=== PATIENT | female | born 1975 | race Caucasian/White ===

== ENCOUNTER 2019-08-19 18:14 | Emergency (ER) | payer MEDICAID ==
[~2019-08-19] VITALS: Ht 157.5 cm; Wt 68.0 kg
[2019-08-19 18:24] VITALS: BP 144/79
--- NOTE | 2019-08-19 18:28 | NUR ---
43 Y/O F C/O RIGHT SIDE ABDOMINAL PAIN X1 DAY. PT DENIES FEVER/VOMITTING/DIAHREA. PT STATES NO DIFFICULTY URINATING. PT STATES PAIN IS 10/10. PT POSITIONED FOR COMFORT, BED LOWERED, SIDE RAILS X1 IN PLACE. [facility] MED HX: NONE
[2019-08-19] MEDS ORDERED: NACL 0.9% 500 ML IV ONE (18:35)
[2019-08-19] MEDS ORDERED: KETOROLAC 30 MG/ML VIAL IVP ONE (18:35)
[2019-08-19 19:01] LABS: APPEARANCE,URINE CLEAR (CLEAR); BILIRUBIN,URINE NEGATIVE (NEGATIVE); BLOOD, URINE NEGATIVE (NEGATIVE); COLOR,URINE YELLOW (YELLOW); LEUKOCYTE ESTERASE ,URINE NEGATIVE (NEGATIVE); NITRITE, URINE NEGATIVE (NEGATIVE); UGLUCOSE NEGATIVE (NEGATIVE)
[2019-08-19 19:05] LABS: BASOPHILS % (AUTO) 0.9 % (0.0-2.0); EOSINOPHILS # (AUTO) 0.1 K/uL (0-0.4); EOSINOPHILS % (AUTO) 1.6 % (0.0-4.0); HEMOGLOBIN 12.7 g/dL (12.0-16.0); LYMPHOCYTES # (AUTO) 1.5 K/uL (2.5-16.5); LYMPHOCYTES % (AUTO) 33.6 % (20.5-51.1); MEAN CORPUSCULAR HEMOGLOBIN 32 pg (27-31); MEAN CORPUSCULAR HGB CONC 33 g/dL (33-37); MEAN CORPUSCULAR VOLUME 97.2 fL (80-94); MONOCYTES # (AUTO) 0.4 K/uL (0.8-1.0); MONOCYTES % (AUTO) 8.2 % (1.7-9.3); NEUTROPHILS # (AUTO) 2.6 K/uL (1.8-7.7); NEUTROPHILS % (AUTO) 55.7 % (42.2-75.2); PLATELET COUNT (AUTO) 218 K/uL (140-450); RED CELL DISTRIBUTION WIDTH 12.9 % (11.6-13.7); WHITE BLOOD COUNT (AUTO) 4.6 K/uL (4.8-10.8)
--- NOTE | 2019-08-19 19:07 | NUR ---
PT TO X-RAY BY WHEELCHAIR.
[2019-08-19 19:15] LABS: ALBUMIN 3.6 g/dL (3.4-5.0); ANION GAP 12.7 (8-16); CREATININE 0.6 mg/dL (0.6-1.3); POTASSIUM 3.7 mmol/L (3.5-5.1); TOTAL BILIRUBIN 0.3 mg/dL (0.0-1.0)
--- NOTE | 2019-08-19 19:20 | NUR ---
REPORT GIVEN TO HILTON LORENZANA FOR TRANSFER OF CARE.
--- NOTE | 2019-08-19 19:20 | NUR ---
RECIEVED REPORT FROM [facility]. ASSUMED CARE AT THIS TIME. PT CURRENTLY AT CT SCAN.
--- NOTE | 2019-08-19 19:50 | NUR ---
PT LAYING FLAT IN BED. C/O RT RIB PAIN 04/10.
--- NOTE | 2019-08-19 19:55 | NUR ---
Dr. Coppola examining patient.
[2019-08-19] MEDS ORDERED: MORPHINE SULFATE 4 MG/ML SYR IVP ONE (20:00)
--- NOTE | 2019-08-19 20:50 | NUR ---
PT REPORTS SLIGHT DECREASE IN PAIN. WILL CONTINUE TO MONITOR.
--- NOTE | 2019-08-19 21:41 | NUR ---
PT GIVEN DISCHARGE PAPERWORK AND INSTRUCTIONS. GIVEN RX OF NORCO AND MOTRIN. MEDICATION ADMINSITRATION AND SIDE EFFECTS EXPLAINED. PT VERBALIZED UNDERSTANDING. PT AMBULATORY WITH STEADY GAIT. PT ADVISED TO F/U WITH PCP.
[2019-08-19 21:42] VITALS: BP 126/79
== END 2019-08-19 21:41 | disposition home or self-care (01) ==
LOC: MED 18:14
DX: R10.9 Unspecified abdominal pain (principal)
CPT/HCPCS: 36415; 74176; 80053; 81003; 81025; 83690; 85025; 96374; 96375; 99284; J1885; J2270